=== PATIENT | female | born 1975 | race Caucasian/White ===

== ENCOUNTER 2020-05-07 10:26 | Outpatient (CLI) | payer OTHER, SELFPAY ==
[2020-05-07 11:08] LABS: Hematocrit 42.9 % (37.0-47.0); Hemoglobin 13.9 g/dL (12.0-15.0); Immature Platelet Fraction Pct 2.1 % (0.9-11.2); Mean Corpuscular HGB Conc 32.4 g/dl (32-36); Mean Corpuscular Volume 86.3 fl (80-100); Mean Platelet Volume 9.4 fl (7.4-10.4); Platelet Count Result 325 k/mm3 (150-375); Red Blood Count 4.97 M/mm3 (4.2-5.4); Red Cell Distribution Width 13.9 % (11.5-14.5); White Blood Count 7.9 K/mm3 (4.5-10.0)
[2020-05-07 11:21] LABS: Cholesterol 201 mg/dL (0-200); HDL Direct 53 mg/dL; Triglycerides 234 mg/dL (<150)
[2020-05-07 11:23] LABS: Alanine Aminotransferase 17 U/L (4-35); Albumin Level 4.5 g/dL (3.5-5.1); Alkaline Phosphatase 92 U/L (38-126); Anion Gap 14.9 mmol/L (7-16); Aspartate Amino Transferase 23 U/L (14-36); Bilirubin,Total 0.3 mg/dL (0.2-1.3); Blood Urea Nitrogen 11 mg/dL (7-17); Calcium 8.9 mg/dL (8.4-10.2); Carbon Dioxide 24 mmol/L (22-30); Chloride 101 mmol/L (98-107); Estimated Glomerular Filt Rate > 60; Glucose 191 mg/dL (65-105); Potassium 3.9 mmol/L (3.4-5.0); Sodium 136 mmol/L (137-145)
[2020-05-07 11:31] LABS: Hemoglobin A1C 5.6 % (<5.7)
[2020-05-07 11:33] LABS: LDL Cholesterol Direct 112 mg/dL
[2020-05-07 12:10] LABS: Free T4 Free Thyroxine 0.97 ng/mL (0.78-2.19)
[2020-05-07 12:15] LABS: Immature Granulocyte Percent A 0.2 % (0-0.5)
[2020-05-07 12:16] LABS: Basophils Percent Auto 0.5 % (0.2-1.2); Lymphocytes Percent Auto 25.9 % (18.3-44.2); Monocytes Percent Auto 5.8 % (2.6-8.5); Neutrophils Percent Auto 63.6 % (45.5-73.1)
[2020-05-07 12:19] LABS: Immature Granulocyte Absolute 0.02 K/mm3 (0.00-0.031); Lymphocytes Absolute Auto 2.09 K/mm3 (0.9-3.2); Neutrophils Absolute Auto 5.1 K/mm3 (1.3-6.7)
[2020-05-07 12:20] LABS: Eosinophils Absolute Auto 0.3 K/mm3 (0-0.3); Monocytes Absolute Auto 0.5 K/mm3 (0.1-0.6)
== END 2020-05-07 10:27 | disposition home or self-care (01) ==
PROVIDERS: PCP Family Medicine; Visit Provider Physician Assistant
DX: F41.1 Generalized anxiety disorder (principal); F33.2 Major depressive disorder, recurrent severe without psychotic features; F51.05 Insomnia due to other mental disorder; F99 Mental disorder, not otherwise specified; R73.03 Prediabetes; Z13.220 Encounter for screening for lipoid disorders
CPT/HCPCS: 36415; 80053; 80061; 83036; 84439; 84443; 85025; 85055

== ENCOUNTER 2021-02-24 15:56 | Outpatient (CLI) | payer BC, SELFPAY ==
--- NOTE | ~2021-02-24 | MM_ITS ---
EXAMINATION: MM screening [facility] BI w vianey HISTORY: Screening TECHNIQUE: Craniocaudal and mediolateral oblique 3-D tomosynthesis images were obtained and synthetic 2-D images were generated. CAD analysis was submitted and interpreted. COMPARISON: 07/16/2018 BREAST PARENCHYMAL COMPOSITION: There are scattered areas of fibroglandular density. FINDINGS: There is a new focal nodular asymmetry posterior central aspect of the right breast on MLO view. There is focal asymmetry superiorly in the left breast on MLO view. IMPRESSION: 1. New focal asymmetries bilaterally. 2. Additional mammographic views and possible breast ultrasound are recommended. BI-RADS Category 0: Incomplete: Needs additional imaging evaluation. Reviewed, dictated and finalized at location A. IMPRESSION: 1. New focal asymmetries bilaterally. 2. Additional mammographic views and possible breast ultrasound are recommended . BI-RADS Category 0: Incomplete: Needs additional imaging evaluation.
--- NOTE | ~2021-02-24 | US_ITS ---
EXAMINATION: US pelvic complete w TV DATE: 02/24/2021 17:00 INDICATION: Dysfunctional uterine bleeding. Ovarian dysfunction, unspecified. TECHNIQUE: Multiple transabdominal and transvaginal sonographic images of the pelvis were obtained. COMPARISON: None. FINDINGS: TRANSABDOMINAL ULTRASOUND: The uterus measures 9.9 x 5.3 x 5.8 cm. There is no free fluid in the pelvis. TRANSVAGINAL ULTRASOUND: The endometrial complex measures 16 mm in thickness. The right ovary measures 2.3 x 2.5 x 2.2 cm. The left ovary measures 3.8 x 3.5 x 3.6 m. There is a 3.3 cm cyst in left ovary. There is normal vascula r flow in the ovaries. IMPRESSION: 1. 3.3 cm cyst in left ovary, likely a follicular cyst. Reviewed, dictated and finalized at location A.
== END 2021-02-24 15:57 | disposition home or self-care (01) ==
PROVIDERS: PCP Family Medicine; Visit Provider Family Medicine
DX: Z12.31 Encounter for screening mammogram for malignant neoplasm of breast (principal); E28.9 Ovarian dysfunction, unspecified; R92.8 Other abnormal and inconclusive findings on diagnostic imaging of breast; N83.202 Unspecified ovarian cyst, left side
CPT/HCPCS: 76830; 76856; 77063; 77067

== ENCOUNTER 2021-03-26 13:53 | Outpatient (CLI) | payer BC, SELFPAY ==
--- NOTE | ~2021-03-26 | MM_ITS ---
EXAMINATION: MM diagnostic mammo BI HISTORY: Left breast mass and right breast asymmetry on screening mammogram TECHNIQUE: Additional 3-D tomosynthesis images of the breasts were performed and synthetic 2-D images were generated. CAD analysis was submitted and interpreted. COMPARISON: 02/24/2021, 07/20/2018, 07/16/2018 BREAST PARENCHYMAL COMPOSITION: There are scattered areas of fibroglandular density. FINDINGS: No persistent asymmetry is identified with spot compression of the right breast. There is a stable 8 mm low-density mass in the posterior third of the upper outer quadrant of the left breast a t the 1:00 location 13 cm from the nipple which is considered benign given the lack of interval zacarias e. IMPRESSION: 1. No mammographic evidence of malignancy. 2. Recommend routine screening mammography in one year. BI-RADS Category 2: Benign finding(s). Reviewed, dictated and finalized at location A.
== END 2021-03-26 13:54 | disposition home or self-care (01) ==
PROVIDERS: PCP Family Medicine; Visit Provider Physician Assistant
DX: R92.8 Other abnormal and inconclusive findings on diagnostic imaging of breast (principal)
CPT/HCPCS: 77066

== ENCOUNTER 2021-05-07 09:31 | Outpatient (CLI) | payer BC, SELFPAY ==
--- NOTE | 2021-05-07 09:41 | ECG_ITS ---
Measurements Intervals [place] Rate: 98 P: 40 OR: 159 QRS: -32 QRSD: 93 T: 30 QT: 372 QTc: 475 Interpretive Statements SINUS RHYTHM LEFT AXIS DEVIATION BORDERLINE R WAVE PROGRESSION, ANTERIOR LEADS BASELINE ARTIFACT- II, III, AVF BORDERLINE ECG Electronically Signed On 05-07-2021 10:31:02 CDT by Ronny Ortega D.O.
== END 2021-05-07 09:32 | disposition home or self-care (01) ==
LOC: ANHSURGERY 09:31
PROVIDERS: PCP Family Medicine; Visit Provider Obstetrics & Gynecology
DX: Z01.818 Encounter for other preprocedural examination (principal); E28.9 Ovarian dysfunction, unspecified; I10 Essential (primary) hypertension
CPT/HCPCS: 36415; 86850; 86900; 86901; 93005

== ENCOUNTER 2021-05-12 00:54 | Day surgery (SDC) | payer BC, SELFPAY ==
[2021-05-05 14:56] VITALS: BMI 40.4
[2021-05-12] VITALS (13 sets, daily range): BP systolic 92–109; BP diastolic 50–78; PULSE 64–92; RESP 14–18; TEMP 36.2–36.8; O2SAT 95–100; BMI 39.6
--- NOTE | 2021-05-12 08:56 | PM.IMHP ---
H&P: [facility] History of Present Illness Date/Time: 05/12/21 08:56 45 y/o who had a heavy episode of vaginal bleeding in December. She then began bleeding on 01/21/21 and has bled every day since then, despite treatment with a combinded oral contraceptive. Ultrasound exam was unremarkable. Her has had a vasectomy. She would like definitive management with hysterectomy. Benign endometrial biopsy in office. 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, predominantly inattentive type Chronic insomnia OSCAR (generalized anxiety disorder) Insomnia due to other mental disorder Major depressive disorder, recurrent, moderate MDD (major depressive disorder), recurrent episode, severe Prediabetes Surgical History Surgical History History of foot surgery Family History Family History Mother Patient's mother is in good health Father Family history of diabetes mellitus in first degree relative Sibling Family history of alcoholism Patient's brother is Social History Social History Social History: Smoking status: Never smoker Second hand tobacco smoke exposure: No Alcohol intake: current Alcohol use details: Occasionally Substance use: never Substance use type: does not use Living arrangements: with family Gender identity (if verbalized by the patient): Female Spiritual care concerns: No Meds Home Medications and Allergies Home Medications Medication Instructions Recorded Confirmed Type metoprolol tartrate 25 mg tablet 25 mg PO DAILY #30 tablet 02/03/21 05/05/21 Rx norethindrone 1.5 mg-ethinyl 1 tablet PO DAILY #84 tablet 02/26/21 05/05/21 Rx estradiol 30 mcg(21)/iron 75 mg(7) tablet fluoxetine 40 mg capsule 40 mg PO BID #60 cap 04/01/21 05/05/21 Rx alprazolam 0.5 mg tablet 0.5 mg PO TID PRN #90 tablet 04/19/21 05/05/21 Rx dextroamphetamine-amphetamine 20 20 mg PO DAILY #30 tablet 04/21/21 05/05/21 Rx mg tablet tizanidine 2 mg tablet 2 mg PO TID PRN #15 tablet 05/03/21 05/05/21 Rx cetirizine [All Day Allergy 10 mg PO HS 05/05/21 05/05/21 History (cetirizine)] zolpidem 10 mg PO HS 05/05/21 05/05/21 History Allergies Allergy/AdvReac Type Severity Reaction Status Date / Time lamotrigine Allergy Severe York-Willie Verified 05/05/21 14:26 syndrome Sulfa (Sulfonamide Allergy Severe YORK-WILLIE Verified 02/16/21 16:26 Antibiotics) SYNDROME tree nut Allergy Severe ANAPHYLAXIS Verified 02/16/21 16:26 Exam Const: Orientation/consciousness: patient oriented x3 Other: Well-developed, well-nourished female in no acute distress. Neck: Thyroid: thyroid normal Lymphatic: no lymphadenopathy noted (in neck, axilla or inguinal nodes) Resp: Effort & Inspection: normal respiratory effort Auscultation: clear to auscultation bilaterally Cardio: Rate: regular rate Rhythm: regular rhythm Heart sounds: S1 normal heart sound present and S2 normal heart sound present GI: Other: ABD: Soft, nontender, nondistended. No guarding or rebound tenderness. No hepatosplenomegaly. : General: Yes no CVA tenderness Other: External genitalia: normal female hair distribution, without lesion. Urethral meatus: no lesion, non prolapsed. Bladder: no mass, nontender Vagina: well-estrogenized, without lesion or discharge. No cystocele or rectocele. Cervix: no lesion or discharge. Uterus: small, anteverted, freely mobile, nontender Adnexa: no mass or tenderness. Anus/perineum: no lesions, nontend
[2021-05-12] MEDS: LACTATED RINGERS 1,000 ML 30 ML IV CONT ×3 (11:01→15:01)
[2021-05-12] MEDS: ACETAMINOPHEN 500 MG TABLET 1000 MG PO (11:01)
[2021-05-12] MEDS: KETOROLAC 15 MG/ML VIAL (*BKC) IV PUSH (11:02)
--- NOTE | 2021-05-12 11:02 | SUR.PREOP ---
1017; PT TEARFUL UPON ARRIVAL TO PREOP STATES SHE IS NERVOUS. SPOUSE WITH PT
--- NOTE | 2021-05-12 11:08 | WPDANESEPPF ---
Anes - Initial Pre Proc Eval Procedure: Operation Date: 05/12/21 12:00 Proposed Procedures p Total Vaginal Hysterectomy, Bilateral Salpingectomy - Medhat Helton MD Date/Time: 05/12/21 11:08 Surgeon: Medhat Helton MD Pre Op Diagnosis: irregular bleeding, pelvic pain Patient Data Age: 45 Gender: F Height: 1.68 m Weight: 111.4 kg Last Vital Signs Temp 36.2 C L 05/12/21 11:00 Pulse 82 05/12/21 11:00 Resp 18 05/12/21 11:00 BP 109/69 05/12/21 11:00 Pulse Ox 100 05/12/21 11:00 Allergies Allergy/AdvReac Type Severity Reaction Status Date / Time lamotrigine Allergy Severe York-Osmel Verified 05/12/21 10:22 syndrome Sulfa (Sulfonamide Allergy Severe YORK-OSMEL Verified 05/12/21 10:22 Antibiotics) SYNDROME tree nut Allergy Severe ANAPHYLAXIS Verified 05/12/21 10:22 Home Medications Medication Instructions Recorded Confirmed Type metoprolol tartrate 25 mg tablet 25 mg PO DAILY #30 tablet 02/03/21 05/12/21 Rx norethindrone 1.5 mg-ethinyl 1 tablet PO DAILY #84 tablet 02/26/21 05/12/21 Rx estradiol 30 mcg(21)/iron 75 mg(7) tablet fluoxetine 40 mg capsule 40 mg PO BID #60 cap 04/01/21 05/12/21 Rx alprazolam 0.5 mg tablet 0.5 mg PO TID PRN #90 tablet 04/19/21 05/12/21 Rx dextroamphetamine-amphetamine 20 20 mg PO DAILY #30 tablet 04/21/21 05/12/21 Rx mg tablet tizanidine 2 mg tablet 2 mg PO TID PRN #15 tablet 05/03/21 05/12/21 Rx cetirizine [All Day Allergy 10 mg PO HS 05/05/21 05/12/21 History (cetirizine)] zolpidem 10 mg PO HS 05/05/21 05/12/21 History Patient hx anesthesia problems: none Family hx anesthesia problems: none PMFSH Past Medical History Medical History 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, predominantly inattentive type Chronic insomnia OSCAR (generalized anxiety disorder) Insomnia due to other mental disorder Major depressive disorder, recurrent, moderate MDD (major depressive disorder), recurrent episode, severe Prediabetes Surgical History Surgical History History of foot surgery Family History Family History Mother Patient's mother is in good health Father Family history of diabetes mellitus in first degree relative Sibling Family history of alcoholism Patient's brother is Social History Social History Social History: Smoking status: Never smoker Second hand tobacco smoke exposure: No Alcohol intake: current Alcohol use details: Occasionally Substance use: never Substance use type: does not use Living arrangements: with family Gender identity (if verbalized by the patient): Female Spiritual care concerns: No Anes - Eval Final PreProcedure Day of Procedure 05/12/21 11:08 Patient weight: obese Heart: regular rate and rhythm Lungs: clear to auscultation Airway: Mallampati scale class II Neurological: alert and oriented Last oral intake: >/= 8 hours ASA classification: III Emergent: no Anesthetic plan: proceed Anesthesia type and monitoring: general ETT and standard monitoring Informed Consent: The patient's anesthetic plan and its attendant risks and benefits were discussed with the patient/family/POA. Questions were solicited and answers provided to the satisfaction of the patient/family/POA.
--- NOTE | 2021-05-12 12:14 | WPDHPUPDATE1 ---
History and Physical Update Update Date/Time: 05/12/21 12:14 History and Physical has been reviewed, including an updated exam of the patient. There are NO changes in the patient's condition. Risks, benefits, and alternatives have been discussed and questions answered. Patient agrees to proceed with procedure.
[2021-05-12] MEDS: ceFAZolin 2 GM/D5W 50 ML 2 GM/50 ML BAG IVPB (12:18)
--- NOTE | 2021-05-12 13:51 | P.OP_ITS ---
Procedure Note - Detailed Date of Procedure 05/12/21 Pre-op Diagnosis Menometrorrhagia Post-op Diagnosis same Procedure Performed Total vaginal hysterectomy Surgeon Medhat Helton MD Anesthesia general Findings Enlarged uterus. Normal-appearing ovaries and Fallopian tubes. Description of Procedure The patient was taken to the operating room where she was prepared and draped in the usual sterile fashion in the dorsal lithotomy position. The bladder was drained with red rubber catheter. A weighted speculum was placed posteriorly. A Romero retractor was used anteriorly. The cervix was grasped with a single- tooth tenaculum. Ten mL of sterile saline was infiltrated circumferentially around the cervix to aid in tissue plane dissection. The cervix was circumscribed using electrocautery. The peritoneal cavity was entered sharply posteriorly and a long weighted speculum was placed. The uterosacral and cardinal ligaments on both sides were then clamped, transected and suture ligated using 0 Vicryl. These were tagged for later identification. The bladder was dissected off the cervix and lower uterine segment and reflected away. The LigaSure device was then used to clamp, ligate and transect the broad ligaments bilaterally. Finally, the utero-ovarian ligament, round ligament and tube complexes on both sides were able to be clamped, transected and suture ligated using 0 Vicryl. The specimen was passed off to be sent to pathology. The bilateral fallopian tubes were high and difficult to see. These were not removed. The pedicles were inspected and found to be hemostatic. The vaginal cuff angles were then transfixed to the ipsilateral cardinal uterosacral ligaments for support. The vaginal cuff was reapproximated using 0 Vicryl in a running, locked fashion. Hemostasis was excellent. A Dubose catheter was placed. Vaginal packing soaked in Premarin cream was placed. Sponge, lap, needle and instrument counts were correct. The patient was awakened and taken to the recovery room in stable condition. I was present and scrubbed for the entire procedure. Implants None Estimated Blood Loss 50 Drains Yes (dubose) Packing Yes (vaginal) Pathology yes (Uterus and cervix) Complications None Condition stable Disposition PACU
[2021-05-12] MEDS: HYDROmorphone HCL INJ (*CRX) 1 MG/ML SYR 0.25 MG IV PUSH ×7 (14:11→14:46)
[2021-05-12] MEDS: SIMETHICONE 80 MG TAB.CHEW PO (17:38)
[2021-05-12] MEDS: DEXTROSE 5%/0.45% SOD CHL 1,000 ML 125 ML IV CONT (17:53)
[2021-05-12] MEDS: ALPRAZolam (*CRX) 0.5 MG TABLET PO (17:53)
[2021-05-12] MEDS: HYDROcodone/acetaminophen (*CRX) 5-325 MG TABLET 1 TAB PO (19:33)
[2021-05-12] MEDS: KETOROLAC 30 MG/ML VIAL (*BKC) IV PUSH (20:16)
[2021-05-12] MEDS: LORATADINE 10 MG TABLET PO (21:08)
[2021-05-12] MEDS: ZOLPIDEM TARTRATE (*CRX) 5 MG TABLET 10 MG PO (21:08)
[2021-05-12] MEDS: ENOXAPARIN 40 MG/0.4 ML SYRINGE SUB-Q (21:08)
[2021-05-12] MEDS: MORPHINE SULFATE (*CRX) 4 MG/ML INJ IV PUSH (21:09)
[2021-05-13 00:30] VITALS: BP 116/64; PULSE 74; RESP 18; TEMP 37.1; O2SAT 97
[2021-05-13] MEDS: HYDROcodone/acetaminophen (*CRX) 10-325 MG TABLET 1 TAB PO ×3 (00:43→08:37)
[2021-05-13 04:15] VITALS: BP 115/70; PULSE 74; RESP 16; TEMP 36.9; O2SAT 99
[2021-05-13 04:30] VITALS: PULSE 74; RESP 16; O2SAT 99
[2021-05-13 05:42] LABS: Basophils Percent Auto 0.2 % (0.2-1.2); Eosinophils Percent Auto 0.1 % (0-4.4); Hematocrit 34.7 % (37.0-47.0); Hemoglobin 10.9 g/dL (12.0-15.0); Immature Granulocyte Absolute 0.02 K/mm3 (0.00-0.031); Immature Granulocyte Percent A 0.2 % (0-0.5); Lymphocytes Absolute Auto 2.01 K/mm3 (0.9-3.2); Mean Corpuscular HGB Conc 31.4 g/dl (32-36); Mean Corpuscular Hemoglobin 27.5 pg (26-34); Mean Corpuscular Volume 87.4 fl (80-100); Mean Platelet Volume 10.4 fl (7.4-10.4); Monocytes Absolute Auto 0.8 K/mm3 (0.1-0.6); Monocytes Percent Auto 8.6 % (2.6-8.5); Neutrophils Absolute Auto 6.7 K/mm3 (1.3-6.7); Neutrophils Percent Auto 69.9 % (45.5-73.1); Platelet Count Result 316 k/mm3 (150-375); Red Blood Count 3.97 M/mm3 (4.2-5.4); Red Cell Distribution Width 13.4 % (11.5-14.5); White Blood Count 9.6 K/mm3 (4.5-10.0)
[2021-05-13 05:48] LABS: Estimated CRCL calculation 89 ml/min; Estimated Glomerular Filt Rate > 60
[2021-05-13 07:55] VITALS: BP 105/64; PULSE 72; RESP 18; TEMP 37; O2SAT 97
[2021-05-13] MEDS: ALPRAZolam (*CRX) 0.5 MG TABLET PO (08:36)
[2021-05-13] MEDS: IBUPROFEN 600 MG TABLET PO (08:37)
[2021-05-13] MEDS: SIMETHICONE 80 MG TAB.CHEW PO (08:37)
[2021-05-13] MEDS: FLUoxetine HCL 20 MG CAPSULE 40 MG PO (08:39)
[2021-05-13 08:40] VITALS: PULSE 110
[2021-05-13] MEDS: METOPROLOL TARTRATE 25 MG TABLET PO (08:40)
--- NOTE | 2021-05-13 09:00 | PM.GYNPNOP ---
PHILOSOPHY LECTURER - A/P Postoperative Procedures: Procedures Operation Date: 05/12/21 12:00 Actual Procedure Side Surgeon p Total Vaginal Hysterectomy Not Applicable Medhat Helton MD A: POD#1, doing well. P: Home to f/u 3-4 weeks Time Spent With Patient Time with patient: less than 15 minutes PHILOSOPHY LECTURER- PN:Subj Post-Op Subjective Date/time seen: 05/13/21 09:00 Interval history: Pain bothersome last evening, but now OK. Tolerating diet. Voiding. Would like to go home. Exam Narrative: AVSS I/O OK ABD soft, nontender. Incisions c/d/i. EXT nontender PHILOSOPHY LECTURER - PN: Obj Data Vital Signs Vital Signs: Vital Signs - 24 hr 05/12/21 11:00 05/12/21 13:50 05/12/21 14:00 Temperature 36.2 C L 36.8 C Pulse Rate 82 80 74 Respiratory Rate 18 18 18 Blood Pressure 109/69 106/64 108/65 Pulse Oximetry 100 99 99 05/12/21 14:15 05/12/21 14:20 05/12/21 14:30 Temperature Pulse Rate 72 72 75 Respiratory Rate 18 18 16 Blood Pressure 108/78 102/63 107/50 L Pulse Oximetry 100 97 98 05/12/21 14:45 05/12/21 14:55 05/12/21 15:05 Temperature Pulse Rate 68 65 67 Respiratory Rate 16 16 14 Blood Pressure 103/67 104/58 L 107/62 Pulse Oximetry 97 97 97 05/12/21 15:15 05/12/21 15:20 05/12/21 16:00 Temperature Pulse Rate 64 65 65 Respiratory Rate 14 16 16 Blood Pressure 102/61 106/62 Pulse Oximetry 95 96 96 05/12/21 19:30 05/13/21 00:30 05/13/21 04:15 Temperature 36.7 C 37.1 C 36.9 C Pulse Rate 92 74 74 Respiratory Rate 16 18 16 Blood Pressure 92/54 L 116/64 115/70 Pulse Oximetry 97 97 99 05/13/21 04:30 05/13/21 08:40 Temperature Pulse Rate 74 110 H Respiratory Rate 16 Blood Pressure Pulse Oximetry 99 Intake/Output Intake/Output: Intake & Output 08/02/21 08/03/21 08/04/21 08/05/21 23:59 23:59 23:59 23:59 Intake Total 990 1000 Output Total 765 1250 Balance 225 -250 Meds/Results Medications: Active Medications Generic Name Dose Route Start Last Admin Trade Name Freq PRN Reason Stop Dose Admin Hydrocodone Bitart/Acetaminophen 1 tab 05/12/21 15:24 05/12/21 19:33 Hydrocodone/Acetaminophen (*Crx) 5-325 Mg Tablet PO 1 tab Q3H PRN Administration Pain Rated 5 or Less Hydrocodone Bitart/Acetaminophen 1 tab 05/12/21 15:24 05/13/21 08:37 Hydrocodone/Acetaminophen (*Crx) 10-325 Mg Tablet PO 1 tab Q3H PRN Administration Pain Rated 6 or Greater Alprazolam 0.5 mg 05/12/21 15:24 05/13/21 08:36 Alprazolam (*Crx) 0.5 Mg Tablet PO 0.5 mg TID PRN Administration anxiety Enoxaparin Sodium 40 mg 05/12/21 21:00 05/12/21 21:08 Enoxaparin 40 Mg/0.4 Ml Syringe SUB-Q 40 mg Q24H JENNA Administration Fluoxetine HCl 40 mg 05/12/21 17:00 05/13/21 08:39 Fluoxetine Hcl 20 Mg Capsule PO 40 mg 0900,1200 JENNA Administration Dextrose/Sodium Chloride 1,000 mls @ 125 mls/hr 05/12/21 15:24 05/13/21 00:47 Dextrose 5% Sodium Chloride 0.45% IV CONT Not Given .Q8H JENNA Ibuprofen 600 mg 05/12/21 15:24 05/13/21 08:37 Ibuprofen 600 Mg Tablet PO 600 mg Q6H PRN Administration Cramping Ketorolac Tromethamine 30 mg 05/12/21 15:24 05/12/21 20:16 Ketorolac 30 Mg/Ml Vial (*Bkc) IV PUSH 05/17/21 15:25 30 mg Q6H PRN Administration Pain Rated 4-6 Loratadine 10 mg 05/12/21 21:00 05/12/21 21:08 Loratadine 10 Mg Tablet PO 06/11/21 21:01 10 mg HS JENNA Administration Metoprolol Tartrate 25 mg 05/13/21 09:00 05/13/21 08:40 Metoprolol Tartrate 25 Mg Tablet PO 25 mg DAILY JENNA Administration Morphine Sulfate 4 mg 08/04/21 15:24 05/12/21 21:09 Morphine Sulfate (*Crx) 4 Mg/Ml Inj IV PUSH 4 mg Q4H PRN Administration Severe breakthrough pain Naloxone HCl 0.1 mg 05/12/21 15:24 Naloxone Hcl 0.4 Mg/Ml Vial IV PUSH Q2M PRN Respiratory rate less than 10 Non-Formulary Medication 20 mg 05/13/21 09:00 Dextroamphetamine-Amphetamine [Adderall] PO 06/12/21 09:01 DAILY JENNA Ondan
--- NOTE | 2021-05-13 09:01 | P.DS_ITS ---
DS: Admitting Diagnosis Admitting Diagnosis Menometrorrhagia DS: Discharge Diagnosis Discharge Diagnosis (1) Menometrorrhagia: Code(s): N92.1 - Excessive and frequent menstruation with irregular cycle Status: Acute DS: Summary Hospital Course Hospital Course: Admitted to the hospital on the date of scheduled surgery. Please see op note for details. Did well postop and was able to go home on POD#1. DS: Data Data Completed and Pending Pending studies at discharge: Pending at discharge 05/12/21 13:31 Surgical [PTH] Routine Labs on day of discharge: Labs from last 24 hours 05/13/21 05/13/21 04:31 04:31 WBC 9.6 RBC 3.97 L Hgb 10.9 L D Hct 34.7 L MCV 87.4 MCH 27.5 MCHC 31.4 L RDW 13.4 Plt Count 316 MPV 10.4 Immature Gran % (Auto) 0.2 Neut % (Auto) 69.9 Lymph % (Auto) 21.0 [place] % (Auto) 8.6 H Eos % (Auto) 0.1 Baso % (Auto) 0.2 Lymph # (Auto) 2.01 [place] # (Auto) 0.8 H Eos # (Auto) 0.0 Baso # (Auto) 0.0 Abs Immat Gran (auto) 0.02 Absolute Neuts (auto) 6.7 Absolute Nucleated RBC 0.0 Nucleated RBC % 0.0 Creatinine 0.90 Estim Creat Clear Calc 89 Estimated GFR > 60 Discharge Plan Discharge Patient Disposition: Home, Self-Care Discharge Instructions: Call or return if temperature above 100.4? F, increased abdominal pain, increased vaginal bleeding or any new problems. Stand Alone Forms: General Discharge Instructions Follow-up/Referrals: Medhat Helton MD [Physician] - 4 Weeks Discharge Medications: New hydrocodone-acetaminophen 5-325 mg tablet 1 - 2 tablet PO Q6H PRN (Reason: pain) Qty: 30 RF: 0 Continued zolpidem 10 mg tablet 10 mg PO HS RF: 0 cetirizine [All Day Allergy (cetirizine)] 10 mg tablet 10 mg PO HS RF: 0 metoprolol tartrate 25 mg tablet 25 mg PO DAILY Qty: 30 RF: 4 fluoxetine 40 mg capsule 40 mg PO BID Qty: 60 RF: 3 alprazolam 0.5 mg tablet 0.5 mg PO TID PRN (Reason: anxiety) Qty: 90 RF: 0 dextroamphetamine-amphetamine [Adderall] 20 mg tablet 20 mg PO DAILY Qty: 30 RF: 0 tizanidine 2 mg tablet 2 mg PO TID PRN (Reason: muscle spasticity) Qty: 15 RF: 0 Discontinued norethindrone-e.estradiol-iron [Loestrin Fe 1.5/30 (28-Day)] 1.5 mg-30 mcg (21)/75 mg (7) tablet 1 tablet PO DAILY Qty: 84 RF: 1
[2021-05-13] MEDS: HYDROcodone/acetaminophen (*CRX) 5-325 MG TABLET 1 TAB PO (11:48)
== END 2021-05-13 12:01 | disposition home or self-care (01) ==
LOC: ANHSURGERY 15:04 → ANHOB2 19:33
PROVIDERS: PCP Family Medicine; Visit Provider Obstetrics & Gynecology
PROC: (CPT 58260; principal; 2021-05-12 12:00)
DX: N92.1 Excessive and frequent menstruation with irregular cycle (principal); D25.2 Subserosal leiomyoma of uterus; R10.2 Pelvic and perineal pain; F90.1 Attention-deficit hyperactivity disorder, predominantly hyperactive type; F41.1 Generalized anxiety disorder; F33.1 Major depressive disorder, recurrent, moderate; R73.03 Prediabetes; E66.9 Obesity, unspecified; Z68.39 Body mass index [BMI] 39.0-39.9, adult; F51.05 Insomnia due to other mental disorder
CPT/HCPCS: 58260; 36415; 82565; 85025; 86850; 86900; 86901; 88307; 93005; 99199; A9270; J0690; J1100; J1170; J1650; J1885; J2250; J2270; J2405; J2704; J2710; J3010; J7030; J7120

== ENCOUNTER 2022-11-28 11:50 | Outpatient (CLI) | payer BC, SELFPAY ==
[2022-11-28 12:42] LABS: Basophils Percent Auto 0.7 % (0.2-1.2); Eosinophils Absolute Auto 0.3 K/mm3 (0-0.3); Eosinophils Percent Auto 4.1 % (0-4.4); Hematocrit 41.9 % (37.0-47.0); Hemoglobin 13.7 g/dL (12.0-15.0); Immature Granulocyte Absolute 0.02 K/mm3 (0.00-0.031); Immature Granulocyte Percent A 0.3 % (0-0.5); Lymphocytes Absolute Auto 2.26 K/mm3 (0.9-3.2); Lymphocytes Percent Auto 37.2 % (18.3-44.2); Mean Corpuscular HGB Conc 32.7 g/dl (32-36); Mean Corpuscular Hemoglobin 28.1 pg (26-34); Mean Corpuscular Volume 85.9 fl (80-100); Mean Platelet Volume 9.6 fl (7.4-10.4); Monocytes Absolute Auto 0.4 K/mm3 (0.1-0.6); Monocytes Percent Auto 6.3 % (2.6-8.5); Neutrophils Absolute Auto 3.1 K/mm3 (1.3-6.7); Neutrophils Percent Auto 51.4 % (45.5-73.1); Platelet Count Result 320 k/mm3 (150-375); Red Blood Count 4.88 M/mm3 (4.2-5.4); Red Cell Distribution Width 14.6 % (11.5-14.5); White Blood Count 6.1 K/mm3 (4.5-10.0)
[2022-11-28 12:51] LABS: Alanine Aminotransferase 18 U/L (6-35); Albumin Level 4.5 g/dL (3.5-5.1); Anion Gap 8 mmol/L (8-16); Aspartate Amino Transferase 24 U/L (14-36); Bilirubin,Total 0.6 mg/dL (0.2-1.3); Blood Urea Nitrogen 8 mg/dL (7-17); Calcium 8.4 mg/dL (8.4-10.2); Carbon Dioxide 25 mmol/L (22-30); Chloride 101 mmol/L (98-107); Cholesterol 175 mg/dL (0-200); Estimated Glomerular Filt Rate > 60; Glucose 101 mg/dL (65-110); HDL Direct 60 mg/dL; Potassium 3.8 mmol/L (3.4-5.0); Sodium 134 mmol/L (137-145); Triglycerides 170 mg/dL (<150)
[2022-11-28 12:52] LABS: Alkaline Phosphatase 92 U/L (38-126)
[2022-11-28 12:55] LABS: Hemoglobin A1C 5.5 % (<5.7)
[2022-11-28 13:03] LABS: LDL Cholesterol Direct 80 mg/dL
== END 2022-11-28 11:51 | disposition home or self-care (01) ==
LOC: ANHLAB 11:53
PROVIDERS: PCP Family Medicine; Visit Provider Nurse Practitioner Gerontology
DX: R73.03 Prediabetes (principal); F41.1 Generalized anxiety disorder; F33.2 Major depressive disorder, recurrent severe without psychotic features; D64.9 Anemia, unspecified
CPT/HCPCS: 36415; 80053; 80061; 83036; 85025

== ENCOUNTER 2023-01-02 09:05 | Outpatient (CLI) | payer BC, SELFPAY ==
--- NOTE | ~2023-01-02 | MM_ITS ---
EXAMINATION: MM screening [facility] BI w vianey HISTORY: Screening TECHNIQUE: Craniocaudal and mediolateral oblique 3-D tomosynthesis images were obtained and synthetic 2-D images were generated. CAD analysis was submitted and interpreted. COMPARISON: Comparison to multiple prior studies sequentially, with oldest reviewed study dated 05/2018. BREAST PARENCHYMAL COMPOSITION: There are scattered areas of fibroglandular density. FINDINGS: There is no evidence of suspicious mass, calcification, or architectural distortion to sugg est malignancy in either breast. There has been no suspicious interval change. IMPRESSION: 1. No mammographic evidence of malignancy. 2. Recommend routine screening mammography in one year. BI-RADS Category 1: Negative Reviewed, dictated and finalized at location A.
== END 2023-01-02 09:06 | disposition home or self-care (01) ==
PROVIDERS: PCP Family Medicine; Visit Provider Nurse Practitioner Gerontology
DX: Z12.31 Encounter for screening mammogram for malignant neoplasm of breast (principal)
CPT/HCPCS: 77063; 77067

== ENCOUNTER 2023-08-29 00:36 | Day surgery (SDC) | payer BC, SELFPAY ==
[2023-08-16 11:23] VITALS: BMI 39.1
--- NOTE | 2023-08-25 14:41 | SUR.PREOP ---
Patient called regarding upcoming procedure. Reviewed preop instructions, appointment times, and procedure prep.
[2023-08-29 10:18] VITALS: BP 141/79; PULSE 72; RESP 17; TEMP 36.5; O2SAT 100; BMI 39.4
[2023-08-29] MEDS: LACTATED RINGERS 1,000 ML 150 ML IV CONT (10:28)
--- NOTE | 2023-08-29 10:37 | PM.HPGS ---
History of Present Illness History of Present Illness Consent: Risks, benefits, and alternatives have been discussed and questions answered. Patient agrees to proceed with procedure. Chief complaint: Dysphagia, unspecified Narrative: Linsey Rodriguez is a 48 year old female with dysphagia, had few occasions that after either drink or eating will feel sensation that gets stuck at throat level and will have to throw up, never had EGD, she has not seen ent. Review of Systems Constitutional: Constitutional: Denies headache(s) and Denies weakness Eyes: Eyes: Denies blurry vision ENT: Reports Normal hearing present, Denies headache(s) and Denies neck pain Cardiovascular: Cardiovascular: Denies chest pain and Denies dyspnea Respiratory: Respiratory: Denies dyspnea Gastrointestinal: Gastrointestinal: Reports no additional gastrointestinal complaints Genitourinary: Genitourinary: Denies dysuria Musculoskeletal: Musculoskeletal: Denies neck pain Integumentary/Breasts: Skin/Breast: Denies dry skin Neurologic: Reports Normal hearing present, Denies headache(s) and Denies weakness Psychiatric: Psychiatric: Denies anxiety Endocrine: Endocrine: Denies change in body appearance Hematologic/Lymphatic: Hematologic/Lymphatic: Denies easy bleeding Allergic/Immunologic: Allergic/Immunologic: Denies urticaria PMFSH Past Medical History Medical History 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, predominantly inattentive type Chronic anemia Chronic insomnia OSCAR (generalized anxiety disorder) Insomnia due to other mental disorder Major depressive disorder, recurrent, moderate MDD (major depressive disorder), recurrent episode, severe Prediabetes York-Willie syndrome Surgical History Surgical History History of foot surgery Family History Family History Mother Patient's mother is in good health Father Family history of diabetes mellitus in first degree relative Sibling Family history of alcoholism Patient's brother is Social History Social History Social History: Smoking status: Never smoker Second hand tobacco smoke exposure: No Alcohol intake: current Drinks per week: 1 Alcohol use details: Occasionally Substance use: never Substance use type: does not use Lack of Transportation: No Lack of Food: Never True Current Housing: I Have Housing Concerned About Future Housing: No Difficulty Paying Gas/Electric Bills: No Difficulty Paying for Meds: No Currently Unemployed: No Education: Decline to Answer Difficulty w/ Childcare or Family Care: No Living arrangements: with family Occupation/Education: occupation Gender identity (if verbalized by the patient): Female Sexual Orientation (if Verbalized by the Patient): Straight or Heterosexual Spiritual care concerns: No Meds Home Medications and Allergies Home Medications Medication Instructions Recorded Confirmed Type fluoxetine 40 mg capsule See Rx Instructions .Route 06/28/23 08/29/23 Rx .COMPLEX #60 caps metoprolol tartrate 25 mg tablet See Rx Instructions .Route 06/28/23 08/29/23 Rx .COMPLEX #90 tabs cetirizine 10 mg tablet See Rx Instructions .Route 07/13/23 08/29/23 Rx .COMPLEX #90 tabs alprazolam 0.5 mg tablet 0.5 mg PO TID 30 days #90 tabs 08/08/23 08/29/23 Rx zolpidem 12.5 mg tablet,extended 12.5 mg PO QHS insomnia 30 days 08/08/23 08/29/23 Rx release,multiphase #30 tabs dextroamphetamine-amphetamine 20 20 mg PO DAILY #30 tabs 08/24/23 08/29/23 Rx mg tablet (Adderall) Allergies Allergy/AdvReac Type Severity Reaction Status Date / Time lamotrigine Allergy Severe York-Willie Verified 08/29/23 10:1
--- NOTE | 2023-08-29 10:39 | WPDANESEPPF ---
Anes - Initial Pre Proc Eval Procedure: Operation Date: 08/29/23 11:30 Proposed Procedures p Esophagogastroduodenoscopy - Ward Meehan MD Date/Time: 08/29/23 10:39 Surgeon: Ward Meehan MD Pre Op Diagnosis: Dysphagia, unspecified Patient Data Age: 48 Gender: F Height: 1.68 m Weight: 110.7 kg Last Vital Signs Temp 97.7 F 08/29/23 10:18 Pulse 72 08/29/23 10:18 Resp 17 08/29/23 10:18 BP 141/79 H 08/29/23 10:18 Pulse Ox 100 08/29/23 10:18 O2 Del Method Room Air 08/29/23 10:18 Allergies Allergy/AdvReac Type Severity Reaction Status Date / Time lamotrigine Allergy Severe Calles-Osmel Verified 08/29/23 10:17 syndrome Sulfa (Sulfonamide Allergy Severe CALLES-OSMEL Verified 08/29/23 10:17 Antibiotics) SYNDROME tree nut Allergy Severe ANAPHYLAXIS Verified 08/29/23 10:17 Home Medications Medication Instructions Recorded Confirmed Type fluoxetine 40 mg capsule See Rx Instructions .Route 06/28/23 08/29/23 Rx .COMPLEX #60 caps metoprolol tartrate 25 mg tablet See Rx Instructions .Route 06/28/23 08/29/23 Rx .COMPLEX #90 tabs cetirizine 10 mg tablet See Rx Instructions .Route 07/13/23 08/29/23 Rx .COMPLEX #90 tabs alprazolam 0.5 mg tablet 0.5 mg PO TID 30 days #90 tabs 08/08/23 08/29/23 Rx zolpidem 12.5 mg tablet,extended 12.5 mg PO QHS insomnia 30 days 08/08/23 08/29/23 Rx release,multiphase #30 tabs dextroamphetamine-amphetamine 20 20 mg PO DAILY #30 tabs 08/24/23 08/29/23 Rx mg tablet (Adderall) Patient hx anesthesia problems: none Family hx anesthesia problems: none Results Review: All pre-operative results and documents have been reviewed as part of the pre-operative evaluation. 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, predominantly inattentive type Chronic anemia Chronic insomnia OSCAR (generalized anxiety disorder) Insomnia due to other mental disorder Major depressive disorder, recurrent, moderate MDD (major depressive disorder), recurrent episode, severe Prediabetes Calles-Osmel syndrome Surgical History Surgical History History of foot surgery Family History Family History Mother Patient's mother is in good health Father Family history of diabetes mellitus in first degree relative Sibling Family history of alcoholism Patient's brother is Social History Social History Social History: Smoking status: Never smoker Second hand tobacco smoke exposure: No Alcohol intake: current Drinks per week: 1 Alcohol use details: Occasionally Substance use: never Substance use type: does not use Lack of Transportation: No Lack of Food: Never True Current Housing: I Have Housing Concerned About Future Housing: No Difficulty Paying Gas/Electric Bills: No Difficulty Paying for Meds: No Currently Unemployed: No Education: Decline to Answer Difficulty w/ Childcare or Family Care: No Living arrangements: with family Occupation/Education: occupation Gender identity (if verbalized by the patient): Female Sexual Orientation (if Verbalized by the Patient): Straight or Heterosexual Spiritual care concerns: No Anes - Eval Final PreProcedure Day of Procedure 08/29/23 10:39 Patient weight: morbidly obese Heart: regular rate and rhythm Lungs: clear to auscultation Airway: Mallampati scale class II Neurological: alert and oriented Last oral intake: >/= 8 hours ASA classification: III Emergent: no Anesthetic plan: proceed Anesthesia type and monitoring: general GIVS and standard monitoring Results Review: All pre-operative results and documents
[2023-08-29 10:57] VITALS: BP 107/69; PULSE 64; RESP 20; O2SAT 94
[2023-08-29 11:07] VITALS: BP 114/73; PULSE 62; RESP 20; O2SAT 92
[2023-08-29 11:17] VITALS: BP 121/78; PULSE 64; RESP 18; O2SAT 97
== END 2023-08-29 11:27 | disposition home or self-care (01) ==
PROVIDERS: PCP Family Medicine; Visit Provider Internal Medicine Gastroenterology
PROC: 0DJ08ZZ Inspection of Upper Intestinal Tract, Via Natural or Artificial Opening Endoscopic (ICD-10-PCS; CPT 43235; principal; 2023-08-29 11:30)
DX: K20.0 Eosinophilic esophagitis (principal); K22.2 Esophageal obstruction; K44.9 Diaphragmatic hernia without obstruction or gangrene; F90.0 Attention-deficit hyperactivity disorder, predominantly inattentive type; D64.89 Other specified anemias; F51.04 Psychophysiologic insomnia; F41.1 Generalized anxiety disorder; F33.2 Major depressive disorder, recurrent severe without psychotic features; R73.03 Prediabetes; E66.01 Morbid (severe) obesity due to excess calories; Z68.39 Body mass index [BMI] 39.0-39.9, adult
CPT/HCPCS: 43239; 43249; 88305; C1726; J2001; J7120

== ENCOUNTER 2024-04-02 11:05 | Outpatient (CLI) | payer BC, SELFPAY ==
[2024-04-02 12:08] LABS: Basophils Percent Auto 0.6 % (0.2-1.2); Eosinophils Absolute Auto 0.2 K/mm3 (0-0.3); Eosinophils Percent Auto 3.1 % (0-4.4); Hematocrit 41.9 % (37.0-47.0); Hemoglobin 13.6 g/dL (12.0-15.0); Immature Granulocyte Absolute 0.02 K/mm3 (0.00-0.031); Immature Granulocyte Percent A 0.3 % (0-0.5); Lymphocytes Absolute Auto 2.01 K/mm3 (0.9-3.2); Lymphocytes Percent Auto 31.1 % (18.3-44.2); Mean Corpuscular HGB Conc 32.5 g/dl (32-36); Mean Corpuscular Hemoglobin 28.3 pg (26-34); Mean Corpuscular Volume 87.1 fl (80-100); Mean Platelet Volume 9.5 fl (7.4-10.4); Monocytes Absolute Auto 0.5 K/mm3 (0.1-0.6); Monocytes Percent Auto 7.9 % (2.6-8.5); Neutrophils Absolute Auto 3.7 K/mm3 (1.3-6.7); Platelet Count Result 334 k/mm3 (150-375); Red Blood Count 4.81 M/mm3 (4.2-5.4); Red Cell Distribution Width 13.7 % (11.5-14.5); White Blood Count 6.5 K/mm3 (4.5-10.0)
[2024-04-02 12:37] LABS: Alanine Aminotransferase 16 U/L (6-35); Albumin Level 4.4 g/dL (3.5-5.1); Alkaline Phosphatase 96 U/L (38-126); Anion Gap 10 mmol/L (4-12); Aspartate Amino Transferase 25 U/L (14-36); Bilirubin,Total 0.4 mg/dL (0.2-1.3); Blood Urea Nitrogen 9 mg/dL (7-17); Calcium 8.9 mg/dL (8.4-10.2); Carbon Dioxide 24 mmol/L (22-30); Chloride 105 mmol/L (98-107); Cholesterol 195 mg/dL (0-200); Estimated Glomerular Filt Rate > 60; Glucose 94 mg/dL (65-110); HDL Direct 51 mg/dL; Potassium 4.1 mmol/L (3.4-5.0); Sodium 139 mmol/L (137-145); Triglycerides 218 mg/dL (<150)
[2024-04-02 12:47] LABS: LDL Cholesterol Direct 111 mg/dL
== END 2024-04-02 11:06 | disposition home or self-care (01) ==
LOC: ANHLAB 11:06
PROVIDERS: PCP Family Medicine; Visit Provider Family Medicine
DX: Z00.00 Encounter for general adult medical examination without abnormal findings (principal); E78.2 Mixed hyperlipidemia; I10 Essential (primary) hypertension
CPT/HCPCS: 36415; 80053; 80061; 85025

== ENCOUNTER 2025-05-16 10:15 | Outpatient (CLI) | payer BC, SELFPAY ==
--- OUTSIDE RECORDS SUMMARY | 2025-05-16 10:21 | XMS_ITS | Patient Health Record ---
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 Role Phone Rafaela Shabazz MD Primary Care Provider Kinjal Janet Pratt Unavailable [phone] Allergies Allergen (clinical drug ingredient) Drug/Non Drug Allergy documented on EMR Reaction Allergy Type Onset Date Status Substance with sulfonamide structure and antibacterial mechanism of action (substance) Sulfa Antibiotics Unknown Drug Allergy Active Results Component Value Reference Range Notes UDT Reviewed date:03/18/2025 11:16:02 AM Interpretation: Performing Lab: Notes/Report: THC POS 0 - 50 ng/ml Cocaine NEG 0 - 300 ng/ml Amphetamine POS 0 - 1000 ng/ml Buprenorphine (BUP) NEG 0 - 10 ng/ml Secobarbital (Bar) NEG 0 - 300 ng/ml Oxazepam (BZO) POS 0 - 300 ng/ml 5-kdelfcyppd-4,0-kcltjnjv-4, 3-diphen ylpyrrolidine (EDDP) NEG 0 - 300 ng/ml Methamphetamine (MET) NEG 0 - 1000 ng/ml Methylenedioxymethamphetamine (MDMA) NEG 0 - 500 ng/ml Morphine (MOP 300/YWK0433) NEG 0 - 300 ng/ml Methadone (MTD) NEG 0 - 300 ng/ml Phencyclidine (PCP) NEG 0 - 25 ng/ml Nortriptyline (TCA) NEG 0 - 1000 ng/ml Oxycodone NEG 0 - 300 ng/ml x NEG 0 - 300 ng/ml Zolpidem Reviewed date:03/21/2025 12:26:34 PM Interpretation: Performing Lab: Notes/Report: THCCOOH Reviewed date:03/21/2025 12:26:18 PM Interpretation: Performing Lab: Notes/Report: THCCOOH >600 15.0 Not Medicated Inconsistent Amphetamine Reviewed date:03/21/2025 12:26:26 PM Interpretation: Performing Lab: Notes/Report: Stimulants Reviewed date:03/21/2025 12:26:45 PM Interpretation: Performing Lab: Notes/Report: Phentermine NEGATIVE 100.0 ng/mL Not Medicated Consistent Methylphenidate NEGATIVE 50.0 ng/mL Not Medicate d Consistent Methamphetamine NEGATIVE 100.0 ng/mL Not Medicate d Consistent Amphetamine 2365.0 100.0 ng/mL Medicated Consistent Benzodiazepines Reviewed date:03/21/2025 12:26:09 PM Interpretation: Performing Lab:[facility], [address] [place] [address], Director - [phone] Notes/Report: An exception occurred while processing this report and so it has incomplete data. Please contact [employer] for assistance. Medicated Consistent Medicated Consistent Not Medicated Consistent Not Medicated Consistent Not Medicated Consistent Not Medicated Consistent Not Medicated Consistent Not Medicated Consistent Not Medicated Consistent Not Medicated Consistent 7-Aminoclonazepam NEGATIVE 20.0 ng/mL Temazepam NEGATIVE 40.0 ng/mL Oxazepam NEGATIVE 40.0 ng/mL Midazolam NEGATIVE 40.0 ng/mL Lorazepam NEGATIVE 40.0 ng/mL Nordiazepam NEGATIVE 40.0 ng/mL Diazepam NEGATIVE 40.0 ng/mL Clonazepam NEGATIVE 20.0 ng/mL Hydroxyalprazolam >800 20.0 Alprazolam 450.2 20.0 ng/mL PDF Report CE_[email or web address] ON_[email or web address] Reason For Referral No Information Medications Medication SIG (Take, Route, Frequency, Duration) Notes Start Date End Date Status Amphetamine-Dextroamph etamine 20 MG TAKE 1 TABLET BY MOUTH DAILY Oral; Duration: 30 Days Active Zolpidem Tartrate 10 MG TAKE 1 TABLET BY MOUTH EVERY DAY AT BEDTIME Oral; Duration: 30 Days F5104,Unavailab le Active Cetirizine HCl 10 MG TAKE 1 TABLET BY MOUTH AT BEDTIME Oral; Duration: 90 Days Active Omeprazole 20 MG TAKE 1 CAPSULE BY MOUTH DAILY Oral; Duration: 90 Days Active Metoprolol Tartrate 25 MG TAKE 1 TABLET BY MOUTH DAILY Oral; Duration: 90 Days Active FLUoxetine HCl 40 MG TAKE 1 CAPSULE BY MOUTH TWICE DAILY IN THE MORNING AND AT NOON Oral; Duration: 90 Days Active hydrOXYzine HCl 10 MG 1 tablet Oral Once a day; Duration: 30 days As needed 03/18/2025 Active ALPRAZolam 0.5 MG TAKE 1 TABLET BY MOUTH THREE TIMES DAILY Oral; Duration: 30 Days F411,Unavailabl e Active Social History Tobacco Use: Social History Observation Description Date Details (start date - stop date) Never Smoker NA - NA Sex Assigned At : Social History Observation Description Sex Assigned At Female Household Question Answer Notes Marital status: Number of adults in household: 2 Number of children in household: 2 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 Yes How often did you have a dri nk containing alcohol in the past year? Monthly or less (1 point) How many drinks did you have on a typical day when you were drinking in the past year? 1 or 2 drinks (0 point) How often did you have six o r more drinks on one occasion in the past year? Less than monthly (1 point) Points 2 Interpretation Negative Problems Problem Type SNOMED Code ICD Code Onset Dates Problem Status W/U Status Risk Notes Problem Primary insomnia (9942298) Primary insomnia (F51.01) Active confirmed Problem Screening for cardiovascular system disease (769392162) Encounter for screening for cardiovascular disorders (Z13.6) Active confirmed Problem Generalized anxiety disorder (71657896) OSCAR (generalized anxiety disorder) (F41.1) Active confirmed Problem Attention deficit hyperactivity disorder (421866123) ADHD (attention deficit hyperactivity disorder), combined type (F90.2) Active confirmed Problem Mild recurrent major depression (83283315) MDD (major depressive disorder), recurrent episode, mild (F33.0) Active confirmed Vital Signs Heart Rate 98 /min 03/18/2025 Respiratory Rate 16 /min 03/18/2025 Height-cm 167.64 cm 03/18/2025 Blood pressure diastolic 85 mm Hg 03/18/2025 Weight-kg 101.24 kg 03/18/2025 Height 66 in 03/18/2025 Blood pressure systolic 118 mm Hg 03/18/2025 Weight 223.2 lbs 03/18/2025 BMI 36.02 kg/m2 03/18/2025 Encounters Encounter Location Date Provider Diagnosis [facility] [address] [facility] [address] [place] [address] 03/18/2025 Janet Cunningham Negative depression screening Z13.31 ; MDD (major depressive disorder), recurrent episode, mild F33.0 ; Encounter for screening for cardiovascular disorders Z13.6 ; OSCAR (generalized anxiety disorder) F41.1 ; ADHD (attention deficit hyperactivity disorder), combined type F90.2 and Primary insomnia F51.01 Assessments Encounter Date Diagnosis (ICD Code) Assessment Notes Treatment Notes Treatment Clinical Notes Section Notes 03/18/2025 MDD (major depressive disorder), recurrent episode, mild (ICD-10 - F33.0) Preventing Depression From Coming Back: Care Instructions material was published, Depression Treatment: Care Instructions material was published, Learning About How to Get Help During a Mental Health Crisis material was published, Learning About Depression Screening material was published Presently taking ALPRAZolam 0.5 MG THREE TIMES DAILY , Zolpidem Tartrate 10 MG Tablet BEDTIME ,.Amphetamine-Dex troamphetamine 20 MG Tablet DAILY, FLUoxetine HCl 40 MG Capsule TAKE 2 CAPSULE BY MOUTH DAILY IN THE MORNING 1. Depression FLUoxetine HCl 40 MG Capsule TAKE 2 CAPSULE BY MOUTHDAILY IN THE MORNING PRESCRIBED BY PCP 2. Anixety ALPRAZolam 0.5 MG THREE TIMES DAILY Discuss Vistaril 10 mg as needed daily for anxiety 3. ADHD Amphetamine-Dextr oamphetamine 20 MG Tablet DAILY- PCP prescribed and taking break in summer 4.Primary Insomnia Zolpidem Tartrate 10 MG Tablet BEDTIME- PCP prescribed discuss having a sleep study with PCP sleep hygeine education reported takes cannabis gummie at night couple times a week in summer and try take often less in school year, discuss Ambien and on higher dose Ambien Complex Sleep Behaviors complex sleep behaviors may occur, incl. sleep-walking, sleep-driving, and engaging in other activities while not fully awake; may result in serious injuries, incl. ; D/C immediately if pt experiences a complex sleep behavior 5. Cannabis NO CONTROL SUBSTANCE PRESCRIBED BY BLAIR Cannabis Use Education Recommend decrease/stop cannabis use as it can negatively impact mood, motivation, anxiety, sleep, focus/concentrati on/memory (vigilance, elasticity, processing and attention); can also contribute to development of psychosis. Recommend decrease/stop cannabis use as it may be negatively impacting mood, motivation, anxiety, sleep, focus; can also contribute to development of psychosis Cannabis/marijuan a information: http_s://immanuel.nih .gov/publications /drugfacts/cannab is-marijuana http_s://www.[employer]/Interacting Technologyel oua-xlc-gtojjirb- marijuana-adhd/ Discussed and educated pt regarding benzodiazepines are generally not intended for prolonged use and that use can cause tolerance, dependence, depression, and associated memory issues including dementias (this list is not exhaustive). Benzodiazepine use is generally not recommended concurrently with pain medications and/or other controlled substances educated on all medications, benefits, side effects and risk, and educated on depression, anxiety, and ADHD, mood d/o and educated on compliance of medications, metabolic and movement d/o education appointment is, continue therapy discussion with patient about course of treatment and patient instructions. education on serotonin syndrome SSRI/SNRI side effects discussed including but not limited to, gastric upset, nausea, vomiting, diarrhea and/or constipation, weight changes, sexual side effects including loss of libido, increased suicidal thoughts/behavior s in children and young adults, and serotonin syndrome. Medication Management and Follow-Up - Plan: - Schedule follow-up appointments every 1-3 months to monitor the patient's response to the medication regimen. - Reinforce the importance of avoiding recreational drug use due to potential neurotoxicity and interactions with prescribed medications. websites http_s://www.[facility] .nih.gov/health/t opics/mental-heal th-medications http_s://www.marci .org/About-Mental -Illness/Treatmen ts/Mental-Health- Medications http_s://www.marci .org/About-Mental -Illness/Mental-H ealth-Conditions http_s://psychcen R[employer].com/depressi on/the-cognitive- boinvwbn-nk-nukvb ssion#treatments http__s://www.[facility].nih.gov/health/ topics/mental-hea lth-medications http__s://www.nam i.org/About-Menta l-Illness/Treatme nts/Mental-Health -Medications http_s://immanuel.nih .gov/publications /drugfacts/cannab is-marijuana http_s://www.[employer]/jeimy ejz-eca-mirlmrwt- marijuana-adhd/ 03/18/2025 Negative depression screening (ICD-10 - Z13.31) Presently taking ALPRAZolam 0.5 MG THREE TIMES DAILY , Zolpidem Tartrate 10 MG Tablet BEDTIME ,.Amphetamine-Dex troamphetamine 20 MG Tablet DAILY, FLUoxetine HCl 40 MG Capsule TAKE 2 CAPSULE BY MOUTH DAILY IN THE MORNING 1. Depression FLUoxetine HCl 40 MG Capsule TAKE 2 CAPSULE BY MOUTHDAILY IN THE MORNING PRESCRIBED BY PCP 2. Anixety ALPRAZolam 0.5 MG THREE TIMES DAILY Discuss Vistaril 10 mg as needed daily for anxiety 3. ADHD Amphetamine-Dextr oamphetamine 20 MG Tablet DAILY- PCP prescribed and taking break in summer 4.Primary Insomnia Zolpidem Tartrate 10 MG Tablet BEDTIME- PCP prescribed discuss having a sleep study with PCP sleep hygeine education reported takes cannabis gummie at night couple times a week in summer and try take often less in school year, discuss Ambien and on higher dose Ambien Complex Sleep Behaviors complex sleep behaviors may occur, incl. sleep-walking, sleep-driving, and engaging in other activities while not fully awake; may result in serious injuries, incl. ; D/C immediately if pt experiences a complex sleep behavior 5. Cannabis NO CONTROL SUBSTANCE PRESCRIBED BY BLAIR Cannabis Use Education Recommend decrease/stop cannabis use as it can negatively impact mood, motivation, anxiety, sleep, focus/concentrati on/memory (vigilance, elasticity, processing and attention); can also contribute to development of psychosis. Recommend decrease/stop cannabis use as it may be negatively impacting mood, motivation, anxiety, sleep, focus; can also contribute to development of psychosis Cannabis/marijuan a information: http_s://immanuel.nih .gov/publications /drugfacts/cannab is-marijuana http_s://www.[employer]/jeimy hfv-fri-pxatswxd- marijuana-adhd/ Discussed and educated pt regarding benzodiazepines are generally not intended for prolonged use and that use can cause tolerance, dependence, depression, and associated memory issues including dementias (this list is not exhaustive). Benzodiazepine use is generally not recommended concurrently with pain medications and/or other controlled substances educated on all medications, benefits, side effects and risk, and educated on depression, anxiety, and ADHD, mood d/o and educated on compliance of medications, metabolic and movement d/o education appointment is, continue therapy discussion with patient about course of treatment and patient instructions. education on serotonin syndrome SSRI/SNRI side effects discussed including but not limited to, gastric upset, nausea, vomiting, diarrhea and/or constipation, weight changes, sexual side effects including loss of libido, increased suicidal thoughts/behavior s in children and young adults, and serotonin syndrome. Medication Management and Follow-Up - Plan: - Schedule follow-up appointments every 1-3 months to monitor the patient's response to the medication regimen. - Reinforce the importance of avoiding recreational drug use due to potential neurotoxicity and interactions with prescribed medications. websites http_s://www.[facility] .nih.gov/health/t opics/mental-heal th-medications http_s://www.[employer] .org/About-Mental -Illness/Treatmen ts/Mental-Health- Medications http_s://www.[employer] .org/About-Mental -Illness/Mental-H ealth-Conditions http_s://[employer]/depressi on/the-cognitive- xgiuefdr-yy-ylbwn ssion#treatments http__s://www.[facility].nih.gov/health/ topics/mental-hea lth-medications http__s://www.[employer]/About-Menta l-Illness/Treatme nts/Mental-Health -Medications http_s://immanuel.nih .gov/publications /drugfacts/cannab is-marijuana http_s://www.[employer]/canna ngx-hza-zobzmozp- marijuana-adhd/ 03/18/2025 Encounter for screening for cardiovascular disorders (ICD-10 - Z13.6) Presently taking ALPRAZolam 0.5 MG THREE TIMES DAILY , Zolpidem Tartrate 10 MG Tablet BEDTIME ,.Amphetamine-Dex troamphetamine 20 MG Tablet DAILY, FLUoxetine HCl 40 MG Capsule TAKE 2 CAPSULE BY MOUTH DAILY IN THE MORNING 1. Depression FLUoxetine HCl 40 MG Capsule TAKE 2 CAPSULE BY MOUTHDAILY IN THE MORNING PRESCRIBED BY PCP 2. Anixety ALPRAZolam 0.5 MG THREE TIMES DAILY Discuss Vistaril 10 mg as needed daily for anxiety 3. ADHD Amphetamine-Dextr oamphetamine 20 MG Tablet DAILY- PCP prescribed and taking break in summer 4.Primary Insomnia Zolpidem Tartrate 10 MG Tablet BEDTIME- PCP prescribed discuss having a sleep study with PCP sleep hygeine education reported takes cannabis gummie at night couple times a week in summer and try take often less in school year, discuss Ambien and on higher dose Ambien Complex Sleep Behaviors complex sleep behaviors may occur, incl. sleep-walking, sleep-driving, and engaging in other activities while not fully awake; may result in serious injuries, incl. ; D/C immediately if pt experiences a complex sleep behavior 5. Cannabis NO CONTROL SUBSTANCE PRESCRIBED BY BLAIR Cannabis Use Education Recommend decrease/stop cannabis use as it can negatively impact mood, motivation, anxiety, sleep, focus/concentrati on/memory (vigilance, elasticity, processing and attention); can also contribute to development of psychosis. Recommend decrease/stop cannabis use as it may be negatively impacting mood, motivation, anxiety, sleep, focus; can also contribute to development of psychosis Cannabis/marijuan a information: http_s://immanuel.nih .gov/publications /drugfacts/cannab is-marijuana http_s://www.[employer]/canna xdz-xtu-zihdmxvn- marijuana-adhd/ Discussed and educated pt regarding benzodiazepines are generally not intended for prolonged use and that use can cause tolerance, dependence, depression, and associated memory issues including dementias (this list is not exhaustive). Benzodiazepine use is generally not recommended concurrently with pain medications and/or other controlled substances educated on all medications, benefits, side effects and risk, and educated on depression, anxiety, and ADHD, mood d/o and educated on compliance of medications, metabolic and movement d/o education appointment is, continue therapy discussion with patient about course of treatment and patient instructions. education on serotonin syndrome SSRI/SNRI side effects discussed including but not limited to, gastric upset, nausea, vomiting, diarrhea and/or constipation, weight changes, sexual side effects including loss of libido, increased suicidal thoughts/behavior s in children and young adults, and serotonin syndrome. Medication Management and Follow-Up - Plan: - Schedule follow-up appointments every 1-3 months to monitor the patient's response to the medication regimen. - Reinforce the importance of avoiding recreational drug use due to potential neurotoxicity and interactions with prescribed medications. websites http_s://www.[facility] .nih.gov/health/t opics/mental-heal th-medications http_s://www.marci .org/About-Mental -Illness/Treatmen ts/Mental-Health- Medications http_s://www.[employer] .org/About-Mental -Illness/Mental-H ealth-Conditions http_s://[employer]/depressi on/the-cognitive- kvrrvxeu-wh-pgwmj ssion#treatments http__s://www.[facility].nih.gov/health/ topics/mental-hea lth-medications http__s://www.[employer])/About-Menta l-Illness/Treatme nts/Mental-Health -Medications http_s://immanuel.nih .gov/publications /drugfacts/cannab is-marijuana http_s://wwwVaxart/cannel mua-tly-zbknzcmd- marijuana-adhd/ 03/18/2025 OSCAR (generalized anxiety disorder) (ICD-10 - F41.1) Learning About Generalized Anxiety Disorder material was published, Generalized Anxiety Disorder: Care Instructions material was published, Learning About Anxiety Disorders material was published Presently taking ALPRAZolam 0.5 MG THREE TIMES DAILY , Zolpidem Tartrate 10 MG Tablet BEDTIME ,.Amphetamine-Dex troamphetamine 20 MG Tablet DAILY, FLUoxetine HCl 40 MG Capsule TAKE 2 CAPSULE BY MOUTH DAILY IN THE MORNING 1. Depression FLUoxetine HCl 40 MG Capsule TAKE 2 CAPSULE BY MOUTHDAILY IN THE MORNING PRESCRIBED BY PCP 2. Anixety ALPRAZolam 0.5 MG THREE TIMES DAILY Discuss Vistaril 10 mg as needed daily for anxiety 3. ADHD Amphetamine-Dextr oamphetamine 20 MG Tablet DAILY- PCP prescribed and taking break in summer 4.Primary Insomnia Zolpidem Tartrate 10 MG Tablet BEDTIME- PCP prescribed discuss having a sleep study with PCP sleep hygeine education reported takes cannabis gummie at night couple times a week in summer and try take often less in school year, discuss Ambien and on higher dose Ambien Complex Sleep Behaviors complex sleep behaviors may occur, incl. sleep-walking, sleep-driving, and engaging in other activities while not fully awake; may result in serious injuries, incl. ; D/C immediately if pt experiences a complex sleep behavior 5. Cannabis NO CONTROL SUBSTANCE PRESCRIBED BY [facility] Cannabis Use Education Recommend decrease/stop cannabis use as it can negatively impact mood, motivation, anxiety, sleep, focus/concentrati on/memory (vigilance, elasticity, processing and attention); can also contribute to development of psychosis. Recommend decrease/stop cannabis use as it may be negatively impacting mood, motivation, anxiety, sleep, focus; can also contribute to development of psychosis Cannabis/marijuan a information: http_s://immanuel.nih .gov/publications /drugfacts/cannab is-marijuana http_s://www.Al[employer]/Interacting Technologya qsk-hrn-aoybogmd- marijuana-adhd/ Discussed and educated pt regarding benzodiazepines are generally not intended for prolonged use and that use can cause tolerance, dependence, depression, and associated memory issues including dementias (this list is not exhaustive). Benzodiazepine use is generally not recommended concurrently with pain medications and/or other controlled substances educated on all medications, benefits, side effects and risk, and educated on depression, anxiety, and ADHD, mood d/o and educated on compliance of medications, metabolic and movement d/o education appointment is, continue therapy discussion with patient about course of treatment and patient instructions. education on serotonin syndrome SSRI/SNRI side effects discussed including but not limited to, gastric upset, nausea, vomiting, diarrhea and/or constipation, weight changes, sexual side effects including loss of libido, increased suicidal thoughts/behavior s in children and young adults, and serotonin syndrome. Medication Management and Follow-Up - Plan: - Schedule follow-up appointments every 1-3 months to monitor the patient's response to the medication regimen. - Reinforce the importance of avoiding recreational drug use due to potential neurotoxicity and interactions with prescribed medications. websites http_s://www.nimh .nih.gov/health/t opics/mental-heal th-medications http_s://www.marci .org/About-Mental -Illness/Treatmen ts/Mental-Health- Medications http_s://www.marci .org/About-Mental -Illness/Mental-H ealth-Conditions http_s://psychcen tral.com/depressi on/the-cognitive- jvvgwhqv-zi-onrdr ssion#treatments http__s://www.nim h.nih.gov/health/ topics/mental-hea lth-medications http__s://www.nam i.org/About-Menta l-Illness/Treatme nts/Mental-Health -Medications http_s://immanuel.nih .gov/publications /drugfacts/cannab is-marijuana http_s://[employer]/T[employer]24 pmm-sdz-cojdwzeh- marijuana-adhd/ 03/18/2025 ADHD (attention deficit hyperactivity disorder), combined type (ICD-10 - F90.2) Learning About Attention Deficit Hyperactivity Disorder (ADHD) in Adults material was published, Attention Deficit Hyperactivity Disorder (ADHD) in Adults: Care Instructions material was published, Learning About Stimulant Medicines for Attention Deficit Hyperactivity Disorder (ADHD) material was published Presently taking ALPRAZolam 0.5 MG THREE TIMES DAILY , Zolpidem Tartrate 10 MG Tablet BEDTIME ,.Amphetamine-Dex troamphetamine 20 MG Tablet DAILY, FLUoxetine HCl 40 MG Capsule TAKE 2 CAPSULE BY MOUTH DAILY IN THE MORNING 1. Depression FLUoxetine HCl 40 MG Capsule TAKE 2 CAPSULE BY MOUTHDAILY IN THE MORNING PRESCRIBED BY PCP 2. Anixety ALPRAZolam 0.5 MG THREE TIMES DAILY Discuss Vistaril 10 mg as needed daily for anxiety 3. ADHD Amphetamine-Dextr oamphetamine 20 MG Tablet DAILY- PCP prescribed and taking break in summer 4.Primary Insomnia Zolpidem Tartrate 10 MG Tablet BEDTIME- PCP prescribed discuss having a sleep study with PCP sleep hygeine education reported takes cannabis gummie at night couple times a week in summer and try take often less in school year, discuss Ambien and on higher dose Ambien Complex Sleep Behaviors complex sleep behaviors may occur, incl. sleep-walking, sleep-driving, and engaging in other activities while not fully awake; may result in serious injuries, incl. ; D/C immediately if pt experiences a complex sleep behavior 5. Cannabis NO CONTROL SUBSTANCE PRESCRIBED BY BLAIR Cannabis Use Education Recommend decrease/stop cannabis use as it can negatively impact mood, motivation, anxiety, sleep, focus/concentrati on/memory (vigilance, elasticity, processing and attention); can also contribute to development of psychosis. Recommend decrease/stop cannabis use as it may be negatively impacting mood, motivation, anxiety, sleep, focus; can also contribute to development of psychosis Cannabis/marijuan a information: http_s://immanuel.nih .gov/publications /drugfacts/cannab is-marijuana http_s://www.[employer]/jeimy skq-oum-ciulhqjc- marijuana-adhd/ Discussed and educated pt regarding benzodiazepines are generally not intended for prolonged use and that use can cause tolerance, dependence, depression, and associated memory issues including dementias (this list is not exhaustive). Benzodiazepine use is generally not recommended concurrently with pain medications and/or other controlled substances educated on all medications, benefits, side effects and risk, and educated on depression, anxiety, and ADHD, mood d/o and educated on compliance of medications, metabolic and movement d/o education appointment is, continue therapy discussion with patient about course of treatment and patient instructions. education on serotonin syndrome SSRI/SNRI side effects discussed including but not limited to, gastric upset, nausea, vomiting, diarrhea and/or constipation, weight changes, sexual side effects including loss of libido, increased suicidal thoughts/behavior s in children and young adults, and serotonin syndrome. Medication Management and Follow-Up - Plan: - Schedule follow-up appointments every 1-3 months to monitor the patient's response to the medication regimen. - Reinforce the importance of avoiding recreational drug use due to potential neurotoxicity and interactions with prescribed medications. websites http_s://www.nimh .nih.gov/health/t opics/mental-heal th-medications http_s://www.marci .org/About-Mental -Illness/Treatmen ts/Mental-Health- Medications http_s://www.marci .org/About-Mental -Illness/Mental-H ealth-Conditions http_s://psychcen [employer].com/depressi on/the-cognitive- wpxduaeb-jw-etucf ssion#treatments http__s://www.nim .nih.gov/health/ topics/mental-hea lth-medications http__s://www.[employer].org/About-Menta l-Illness/Treatme nts/Mental-Health -Medications http_s://immanuel.nih .gov/publications /drugfacts/cannab is-marijuana http_s://www.[employer]/Tipp24 wjd-aqr-xxfetkpy- marijuana-adhd/ 03/18/2025 Primary insomnia (ICD-10 - F51.01) Insomnia: Care Instructions material was published, Learning About Sleeping Well material was published Presently taking ALPRAZolam 0.5 MG THREE TIMES DAILY , Zolpidem Tartrate 10 MG Tablet BEDTIME ,.Amphetamine-Dex troamphetamine 20 MG Tablet DAILY, FLUoxetine HCl 40 MG Capsule TAKE 2 CAPSULE BY MOUTH DAILY IN THE MORNING 1. Depression FLUoxetine HCl 40 MG Capsule TAKE 2 CAPSULE BY MOUTHDAILY IN THE MORNING PRESCRIBED BY PCP 2. Anixety ALPRAZolam 0.5 MG THREE TIMES DAILY Discuss Vistaril 10 mg as needed daily for anxiety 3. ADHD Amphetamine-Dextr oamphetamine 20 MG Tablet DAILY- PCP prescribed and taking break in summer 4.Primary Insomnia Zolpidem Tartrate 10 MG Tablet BEDTIME- PCP prescribed discuss having a sleep study with PCP sleep hygeine education reported takes cannabis gummie at night couple times a week in summer and try take often less in school year, discuss Ambien and on higher dose Ambien Complex Sleep Behaviors complex sleep behaviors may occur, incl. sleep-walking, sleep-driving, and engaging in other activities while not fully awake; may result in serious injuries, incl. ; D/C immediately if pt experiences a complex sleep behavior 5. Cannabis NO CONTROL SUBSTANCE PRESCRIBED BY BLAIR Cannabis Use Education Recommend decrease/stop cannabis use as it can negatively impact mood, motivation, anxiety, sleep, focus/concentrati on/memory (vigilance, elasticity, processing and attention); can also contribute to development of psychosis. Recommend decrease/stop cannabis use as it may be negatively impacting mood, motivation, anxiety, sleep, focus; can also contribute to development of psychosis Cannabis/marijuan a information: http_s://immanuel.nih .gov/publications /drugfacts/cannab is-marijuana http_s://www.[employer]/jeimy hyq-cdw-bcmfulmu- marijuana-adhd/ Discussed and educated pt regarding benzodiazepines are generally not intended for prolonged use and that use can cause tolerance, dependence, depression, and associated memory issues including dementias (this list is not exhaustive). Benzodiazepine use is generally not recommended concurrently with pain medications and/or other controlled substances educated on all medications, benefits, side effects and risk, and educated on depression, anxiety, and ADHD, mood d/o and educated on compliance of medications, metabolic and movement d/o education appointment is, continue therapy discussion with patient about course of treatment and patient instructions. education on serotonin syndrome SSRI/SNRI side effects discussed including but not limited to, gastric upset, nausea, vomiting, diarrhea and/or constipation, weight changes, sexual side effects including loss of libido, increased suicidal thoughts/behavior s in children and young adults, and serotonin syndrome. Medication Management and Follow-Up - Plan: - Schedule follow-up appointments every 1-3 months to monitor the patient's response to the medication regimen. - Reinforce the importance of avoiding recreational drug use due to potential neurotoxicity and interactions with prescribed medications. websites http_s://www.nimh .nih.gov/health/t opics/mental-heal th-medications http_s://www.[employer]/About-Mental -Illness/Treatmen ts/Mental-Health- Medications http_s://www.[facility]/About-Mental -Illness/Mental-H ealth-Conditions http_s://[employer]/depressi on/the-cognitive- vnpszfut-cl-pvddt ssion#treatments http__s://www.[facility].nih.gov/health/ topics/mental-hea lth-medications http__s://www.[employer])/About-Menta l-Illness/Treatme nts/Mental-Health -Medications http_s://immanuel.nih .gov/publications /drugfacts/cannab is-marijuana http_s://www.[employer]/cannel guf-wnq-rsnhoval- marijuana-adhd/ 03/18/2025 Other Learning About Depression Screening material was printed, Hydroxyzine material was published Presently taking ALPRAZolam 0.5 MG THREE TIMES DAILY , Zolpidem Tartrate 10 MG Tablet BEDTIME ,.Amphetamine-Dex troamphetamine 20 MG Tablet DAILY, FLUoxetine HCl 40 MG Capsule TAKE 2 CAPSULE BY MOUTH DAILY IN THE MORNING 1. Depression FLUoxetine HCl 40 MG Capsule TAKE 2 CAPSULE BY MOUTHDAILY IN THE MORNING PRESCRIBED BY PCP 2. Anixety ALPRAZolam 0.5 MG THREE TIMES DAILY Discuss Vistaril 10 mg as needed daily for anxiety 3. ADHD Amphetamine-Dextr oamphetamine 20 MG Tablet DAILY- PCP prescribed and taking break in summer 4.Primary Insomnia Zolpidem Tartrate 10 MG Tablet BEDTIME- PCP prescribed discuss having a sleep study with PCP sleep hygeine education reported takes cannabis gummie at night couple times a week in summer and try take often less in school year, discuss Ambien and on higher dose Ambien Complex Sleep Behaviors complex sleep behaviors may occur, incl. sleep-walking, sleep-driving, and engaging in other activities while not fully awake; may result in serious injuries, incl. ; D/C immediately if pt experiences a complex sleep behavior 5. Cannabis NO CONTROL SUBSTANCE PRESCRIBED BY BLAIR Cannabis Use Education Recommend decrease/stop cannabis use as it can negatively impact mood, motivation, anxiety, sleep, focus/concentrati on/memory (vigilance, elasticity, processing and attention); can also contribute to development of psychosis. Recommend decrease/stop cannabis use as it may be negatively impacting mood, motivation, anxiety, sleep, focus; can also contribute to development of psychosis Cannabis/marijuan a information: http_s://immanuel.nih .gov/publications /drugfacts/cannab is-marijuana http_s://www.[employer]/canna vqg-clb-whawteyy- marijuana-adhd/ Discussed and educated pt regarding benzodiazepines are generally not intended for prolonged use and that use can cause tolerance, dependence, depression, and associated memory issues including dementias (this list is not exhaustive). Benzodiazepine use is generally not recommended concurrently with pain medications and/or other controlled substances educated on all medications, benefits, side effects and risk, and educated on depression, anxiety, and ADHD, mood d/o and educated on compliance of medications, metabolic and movement d/o education appointment is, continue therapy discussion with patient about course of treatment and patient instructions. education on serotonin syndrome SSRI/SNRI side effects discussed including but not limited to, gastric upset, nausea, vomiting, diarrhea and/or constipation, weight changes, sexual side effects including loss of libido, increased suicidal thoughts/behavior s in children and young adults, and serotonin syndrome. Medication Management and Follow-Up - Plan: - Schedule follow-up appointments every 1-3 months to monitor the patient's response to the medication regimen. - Reinforce the importance of avoiding recreational drug use due to potential neurotoxicity and interactions with prescribed medications. websites http_s://www.[facility] .nih.gov/health/t opics/mental-heal th-medications http_s://www.marci .org/About-Mental -Illness/Treatmen ts/Mental-Health- Medications http_s://www.marci .org/About-Mental -Illness/Mental-H ealth-Conditions http_s://psychcen tralOn The Spot Systemscom/depressi on/the-cognitive- bmkrgioo-dm-tpjmx ssion#treatments http__s://www.[facility].nih.gov/health/ topics/mental-hea lth-medications http__s://www.[employer].org/About-Menta l-Illness/Treatme nts/Mental-Health -Medications http_s://immanuel.nih .gov/publications /drugfacts/cannab is-marijuana http_s://www.[employer]/canna fin-xwk-uhbnrqin- marijuana-adhd/ Plan Of Treatment No Information Insurance Providers Payer Name Payer Address Payer Phone Subscriber Number Group Number Insured Name Patient Relationship to Insured Coverage Start Date Coverage End Date [employer] [place] [address] [id number] Linsey Rodriguez Self - patient is the insured Medical (General) History Medical History History ICD Code ADHD Chronic Insomnia Chronic Anemia OSCAR Insomnia due to mental disorder MDD Prediabetes 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
--- OUTSIDE RECORDS SUMMARY | 2025-05-16 10:21 | XMS_ITS | Clinical Summary ---
Author Organization [facility] Address [address] [place] [id number] Phone Care Team Providers Care Brass Polisher Name Role Phone Elisabeth Berg MD Primary Care Provider [phone] Allergies Active Allergy Reactions Criticality Noted Date Comments Lamotrigine Rash Low 05/31/2014 Medications diphenhydrAMINE (BENADRYL) 50 mg Tablet Take 50 mg by mouth every 6 hours as needed for Allergies. Active cetirizine (ZYRTEC) 10 mg tablet Take 10 mg by mouth daily. Active aspirin (SOFIYA CHEWABLE) 81 mg Tablet, Chewable Take 81 mg by mouth daily. Active clonazePAM (KLONOPIN) 1 mg tablet Take 1 mg by mouth 2 times daily. Active BUPROPION HCL (WELLBUTRIN ORAL) Take 300 mg by mouth. Active zolpidem (AMBIEN) 10 mg tablet Take 10 mg by mouth nightly as needed for Insomnia. Active ALPRAZolam (XANAX) 0.25 mg tablet Take 0.25 mg by mouth nightly as needed for Anxiety. Active dextroamphetami ne-amphetamine (ADDERALL) 20 mg tablet Take 40 mg by mouth daily. Active escitalopram oxalate (LEXAPRO) 20 mg tablet Take 20 mg by mouth daily. Active predniSONE (DELTASONE) 20 mg tablet 3 tabs for 4 days. 12 Tab 0 05/23/2014 Active predniSONE (DELTASONE) 10 mg tablet Take 6 tablets each day for 3 days then 4 tablets each day for 3 days then 2 tablets each day for 3 days then one tablet each day for 3 days 40 Tab None 05/31/2014 Active Active Problems Problem Noted Date Diagnosed Date Hypersensitivity reaction, d ue to correct medicinal substance properly administered 05/27/2014 UTI (urinary tract infection) 05/24/2014 Abnormal LFTs 05/22/2014 Rash 05/21/2014 Depression Anxiety Family History Medical History Relation Name Comments Depression Brother Other Brother Diabetes Father Unknown Paternal Grandmother Relation Name Status Comments Brother Father Paternal Grandmother Social History Tobacco Use Types Packs/Day Years Used Date Smoking Tobacco: Never Alcohol Use Standard Drinks/Week Comments Yes 0 (1 standard drink = 0.6 oz pur e alcohol) socially Comments No Sex and Gender Information Value Date Recorded Sex Assigned at Not on file Legal Sex Female 7:28 PM CDT Gender Identity Not on file Sexual Orientation Not on file Occupation Industry Job Start Date Job End Date Not on file Not on file Not on file Not on file Last Filed Vital Signs Vital Sign Reading Time Taken Comments Blood Pressure 115/56 05/31/2014 4:30 AM CDT Pulse 88 05/31/2014 4:30 AM CDT Temperature 36.6 C (97.9 F) 05/31/2014 1:50 AM CDT Respiratory Rate 18 05/31/2014 4:30 AM CDT Oxygen Saturation 96% 05/31/2014 4:30 AM CDT Inhaled Oxygen Concentration - - Weight 99.8 kg (220 lb) 05/31/2014 1:50 AM CDT Height 167.6 cm (5' 6) 05/31/2014 1:50 AM CDT Body Mass Index 35.51 05/31/2014 1:50 AM CDT Plan of Treatment Health Maintenance Due Date Last Done Comments DTAP/TDAP/TD VACCINES (1 - Tdap) 1996 HEPATITIS B VACCINES (1 of 3 - 19+ 3-dose series) 08/09 HPV/Cotest (21-29) 1998 CERVICAL CANCER SCREENING 2007 HPV/Cotest (30-65) 2007 PAP SMEAR 2007 BREAST CANCER SCREENING 2017 COLORECTAL SCREENING 2022 Colorectal Cancer Screening 2022 FIT-DNA Q 3 years 2022 FIT/FOBT Q 1 year 2022 Flex Sig/CT Colonography Q 5 years 2022 INFLUENZA VACCINE (#1) 2025 Insurance [facility] OPT[employer] PPO [id number] Advance Directives For more information, please contact: [phone] * Full Code (Latest Code Status on File) Date Activated Date Inactivated Comments 05/22/2014 2:47 AM 05/22/2014 8:24 PM Care Teams Brass Polisher Relationship Specialty Start Date End Date Elisabeth Berg MD [address] [id number] PCP - General 09/25/15
[2025-05-16 10:59] LABS: Hematocrit 43.7 % (37.0-47.0); Hemoglobin 14.4 g/dL (12.0-15.0); Mean Corpuscular HGB Conc 33.0 g/dl (32-36); Mean Corpuscular Hemoglobin 29.0 pg (26-34); Mean Corpuscular Volume 87.9 fl (80-100); Platelet Count Result 284 k/mm3 (150-375); Red Blood Count 4.97 M/mm3 (4.2-5.4); White Blood Count 5.8 K/mm3 (4.5-10.0)
[2025-05-16 11:01] LABS: Add Urine Microscopic? NO; Appearance Urine Clear (Clear); Glucose Urine UA Negative (Negative); Leukocyte Esterase Ur Negative LEU/UL (Negative); Nitrate Urine Negative (Negative); Specific Grav Ur 1.017 (1.001-1.035)
[2025-05-16 11:18] LABS: Alanine Aminotransferase 19 U/L (6-35); Albumin Level 4.3 g/dL (3.5-5.1); Alkaline Phosphatase 71 U/L (38-126); Anion Gap 10 mmol/L (4-12); Aspartate Amino Transferase 28 U/L (14-36); Bilirubin,Total 0.5 mg/dL (0.2-1.3); Blood Urea Nitrogen 6 mg/dL (7-17); Calcium 8.9 mg/dL (8.4-10.2); Carbon Dioxide 25 mmol/L (22-30); Chloride 103 mmol/L (98-107); Cholesterol 173 mg/dL (0-200); Estimated Glomerular Filt Rate > 60; Glucose 89 mg/dL (65-110); HDL Direct 55 mg/dL; Potassium 4.0 mmol/L (3.4-5.0); Sodium 138 mmol/L (137-145); Total Protein 7.2 g/dL (6.3-8.2); Triglycerides 94 mg/dL (<150)
[2025-05-16 11:53] LABS: Thyroid Stimulating Hormone 1.420 uIU/mL (0.465-4.680)
== END 2025-05-16 10:16 | disposition home or self-care (01) ==
PROVIDERS: PCP Family Medicine; Visit Provider Family Medicine
DX: Z00.00 Encounter for general adult medical examination without abnormal findings (principal)
CPT/HCPCS: 36415; 80053; 80061; 81003; 84443; 85027